=== PATIENT | male | born 2000 | race African-American/Black ===

== ENCOUNTER 2024-10-03 04:09 | Emergency (ER) | payer BC, OTHER ==
[~2024-10-03] VITALS: Ht 177.8 cm; Wt 68.0 kg
[2024-10-03] MEDS ORDERED: HYDROMORPHONE 1 MG/1 ML DISP.SYRIN ONE (04:48)
[2024-10-03] MEDS ORDERED: KETOROLAC TROMETHAMINE 15 MG/ML VIAL ONE (04:48)
[2024-10-03] MEDS: IV NS 0.9% 1,000 ML BAG IV ONE ×2 (04:49→06:30)
[2024-10-03] MEDS: KETOROLAC TROMETHAMINE 15 MG/ML VIAL IV ONE (04:49)
[2024-10-03] MEDS: HYDROMORPHONE 1 MG/1 ML DISP.SYRIN IV ONE (04:49)
[2024-10-03 05:05] LABS: PLATELET COUNT (AUTO) 475 K/uL (150-450); RED BLOOD CELL COUNT(AUTO) 2.03 MIL/uL (4.5-6.0); RED CELL DISTRIBUTION WIDTH 26.4 % (11.5-15.0); WHITE BLOOD COUNT (AUTO) 15.7 K/uL (4.3-11.0)
[2024-10-03 05:08] LABS: CALCIUM, SERUM 8.9 mg/dL (8.5-10.1); CREATININE 0.9 mg/dL (0.6-1.3); SODIUM SERUM 138.0 mmol/L (136-145); UREA NITROGEN, BLOOD 12.0 mg/dL (7-18)
[2024-10-03] MEDS: AMOX/CLAVULANATE 875 MG TABLET PO ONE (06:05)
[2024-10-03] MEDS ORDERED: AMOX/CLAVULANATE 875 MG TABLET ONE (06:05)
[2024-10-03] MEDS ORDERED: AZITHROMYCIN 500 MG VIAL ONE (06:28)
[2024-10-03] MEDS ORDERED: CEFTRIAXONE 1GM BAG (ER ONLY) 50 ML IV ONE (06:28)
[2024-10-03] MEDS: CEFTRIAXONE 1GM BAG (ER ONLY) 1 GM/50 ML PIGGYBACK IV ONE (06:30)
[2024-10-03] MEDS: AZITHROMYCIN 500 MG in IV D5W 250 ML IV ONE (06:52)
[2024-10-03 07:21] LABS: BASOPHILS % (MANUAL) 0 % (0.0-2.0); EOSINOPHILS % (MANUAL) 3 % (0-4); LYMPHOCYTES % (MANUAL) 26 % (16-48); MONOCYTES % (MANUAL) 5 % (0-11.0); NEUTROPHILS % (MANUAL) 66 (42-76); PLATELET ESTIMATE INCREASED
[2024-10-03 07:47] LABS: APPEARANCE,URINE CLEAR (CLEAR); BLOOD, URINE 1+ Ery/uL (NEGATIVE); LEUKOCYTE ESTERASE ,URINE NEGATIVE (NEGATIVE); NITRITE, URINE NEGATIVE (NEGATIVE); UGLUCOSE NEGATIVE (NEGATIVE)
[2024-10-03 08:06] LABS: SQUAMOUS EPITHELIAL CELL,UR Rare /HPF (None Seen); URINE AMORPHOUS URATE Few /HPF (None Seen)
[2024-10-03 08:07] LABS: ADD URINE CULTURE YES
[2024-10-03 10:00] VITALS: BP 124/82; TEMP 98.6; O2SAT 100
== END 2024-10-03 10:01 | disposition short-term general hospital (02) ==
LOC: ER 04:11 → EDSEX 04:11 → ER 10:01
DX: D57.00 Hb-SS disease with crisis, unspecified (principal); Z79.01 Long term (current) use of anticoagulants; Z20.822 Contact with and (suspected) exposure to COVID-19
CPT/HCPCS: 99285; 96365; 71250; 96375; 71045; 96361; 87426; 96368; 87804 ×2; 85025; 80048; 87040 ×2; 87086; 83605; 85045; 81001; 36415; 85660; 85027; J1885; J7030 ×3; J0456; A4223; J0696; J1171; J7060